=== PATIENT | female | born 1985 | race Caucasian/White ===

== ENCOUNTER 2016-07-31 15:39 | Emergency (ER) | payer OTHER ==
[2016-07-31] MEDS ORDERED: SULFAMETHOXAZOLE 800 MG/TRIMETHOPRIM 160 MG TABLET ONE (20:02)
[2016-08-01 15:15] LABS: SOURCE Genital (())
== END 2016-07-31 20:54 | disposition home or self-care (01) ==
LOC: ED 15:39
DX: L03.315 Cellulitis of perineum (principal); Z86.14 Personal history of Methicillin resistant Staphylococcus aureus infection